=== PATIENT | female | born 2000 | race Caucasian/White ===

== ENCOUNTER 2019-10-31 18:21 | Emergency (ER) | payer OTHER ==
--- NOTE | 2019-10-31 18:57 | ED.PDOC ---
History of Present Illness - General Time Seen by Provider: 10/31/19 18:56 Source: patient - History of Present Illness Initial Comments: 19-year-old female with PMH of anemia who presents with chief complaint of left fourth digit pain following injury at approximately 530 this evening. [place] her left distal fourth digit got caught between the boat and the dock causing blunt smashing injury to the tip of the finger. She reports constant throbbing 6/10 severity pain to the fingertip without radiation, worse with palpation and range of motion of the fingertip, took ibuprofen 800 mg prior to arrival with little pain relief. Reports a little bit of numbness to the tip of the finger but no weakness. She does report some swelling and some bleeding of the nailbed and displacement of the base of the nailbed. Denies any other acute injuries. Occurred: this evening Home Medications: Ambulatory Orders Cephalexin Monohydrate [Keflex] 500 mg PO BID 7 Days #14 cap 10/31/19 Review of Systems - Review of Systems Review of Systems: 10/31/19 20:10 as per HPI All other Systems: Reviewed and Negative Family Medical History - Family History Mother Family History: Unknown Physical Exam - Physical Exam General Appearance: Alert, Comfortable, No apparent distress Eyes, Ears, Nose, Throat Exam: PERRL/EOMI, normal ENT inspection Neck: full range of motion, supple Cardiovascular/Respiratory: regular rate, rhythm, no M/R/G, normal peripheral pulses, normal breath sounds, no respiratory distress Abdominal Exam: non-tender Elbow/Forearm Exam: normal inspection Wrist Exam: normal inspection Hand Exam: nail injury - To the distal left fourth digit there is moderate swelling without apparent deformity. The fingernail is detached from the base but still in place and there is scant bleeding from the nailbed noted but the nailbed is unable to be directly visualized. There is moderate tenderness to palpation of the distal fourth digit. Active and passive range of motion of the DIP joint is moderately limited due to pain. Otherwise the remainder of the hand appears normal. Good cap refill throughout. Strength and sensation intact throughout. Neuro/Tendon: normal sensation, normal motor functions, normal tendon functions Mental Status: alert, oriented x 3 Skin Exam: normal color, warm/dry Progress - Progress Progress: 10/31/19 19:12 Distal left fourth digit injury -Consider phalanx fracture, tendon injury, nailbed laceration, other -We will obtain x-ray of the left hand, cold pack and Tylenol 3 for pain 10/31/19 21:31 -X-ray of the left hand revealed comminuted distal tuft fracture of the fourth digit distal phalanx. There was no extension of the fracture into the joint space. No other acute processes were noted per my read. -See separate procedure note for expiration of the fourth digit nailbed as well as replacement of the partially avulsed nail back into the nailbed base/germinal matrix and sewn into place. -A clean dressing and a splint was applied to the fourth digit. The patient will need to have the sutures removed in 2 to 3 weeks time and will need to wear the splint for 3 to 4 weeks or until she has minimal pain to the area. I advised her to follow-up closely with her PCP, especially if she is having any issues. Will prescribe prophylactic antibiotics with Keflex 500 mg p.o. twice daily for 7 days. -Discharged home in good condition, ED return warnings discussed. Wound care discussed at length. Logan Blakely MD Billing #[id number] Procedures - Laceration/Wound Repair Left Finger Wound Explored: clean Betadine Prep?: Yes Suture Size/Type: 6:0, prolene Number of Sutures: 2 Layer Closure?: No Splint Applied?: Yes - U-shaped splint to distal 4th digit immobilizing DIP joint in extension Progress: The patient was verbally consented prior to start of procedure. A timeout was performed verifying the correct patient procedure site. The base of the left fourth digit was cleansed thoroughly with Betadine. A digital nerve block of the left fourth digit was then performed by injecting 2 mL's of 1% lidocaine without epi along the medial and lateral base of the digit at the site of the digital nerves. Excellent analgesic effect was achieved. The partially avulsed fingernail of the fourth digit was then lifted and the nailbed was able to be well visualized. No nailbed lacerations were noted. Then the fingernail was replaced into the base of the nailbed in order to prevent early closure of the germinal matrix. The nail was sewn into place along the lateral margins using 2 sutures of 6-0 Prolene. A hole was then made in the top of the fingernail using an 18-gauge needle. The patient tolerated the procedure well and there were no complications. Estimated blood loss less than 1 mL. A clean dressing was then applied and the DIP joint of the fourth digit was immobilized in extension with a U-shaped padded splint. Departure - Departure Clinical Impression: Fracture of distal phalanx of finger of left hand Avulsed fingernail Qualifiers: Encounter type: initial encounter Qualified Code(s): S61.309A - Unspecified open wound of unspecified finger with damage to nail, initial encounter Time of Disposition: 22:10 Disposition: Discharge to Home or Self Care Condition: Good Instructions: Finger Fracture (DC), Nail Avulsion (DC) Activity: increase activity as tolerated Prescriptions: Cephalexin Monohydrate [Keflex] 500 mg PO BID 7 Days #14 cap Home Medications: Ambulatory Orders Cephalexin Monohydrate [Keflex] 500 mg PO BID 7 Days #14 cap 10/31/19 Additional Instructions: The sutures of the fingernail will need to come out in 2 to 3 weeks time (November 13-). Continue wearing the finger splint as directed until the finger is minimally painful to palpation or for 3-4 weeks total, which ever comes sooner. Remove the splint and gently wash of the area with warm soap and water 1-2 times daily and pat dry and reapply topical antibiotic ointment such as Neosporin and put the splint back in place after. Follow-up with your primary care physician in the next 1 to 2 weeks as recommended for repeat evaluation or sooner as needed. Take the antibiotics as directed to help prevent infection. Return to the ED if the finger develops worsening redness, swelling, warmth, or puslike drainage which may indicate infection.
[2019-10-31] MEDS ORDERED: ACETAMINOPHEN W/COD #3 TAB 1 EA TAB PO ONE (20:08)
--- NOTE | 2019-10-31 20:08 | RAD ---
EXAM DESCRIPTION: Hand,Left 3 Views CLINICAL HISTORY: 19 years ,Female blunt injury/pain to left hand COMPARISON: None. TECHNIQUE: LEFT hand, Three view FINDINGS: Comminuted fracture of the distal aspect of the fourth distal phalanx. No radiopaque foreign object noted. IMPRESSION: Comminuted fracture of the distal aspect of the fourth distal phalanx Electronically signed by: Christiana Banks MD 10/31/2019 8:07 PM CDT
[2019-10-31] MEDS ORDERED: LIDOCAINE 1% 10 ML VIAL INJ ONE (20:13)
[2019-10-31 22:35] VITALS: BP 120/77; TEMP 98.5; O2SAT 100
== END 2019-10-31 22:36 | disposition home or self-care (01) ==
LOC: ER 18:21
DX: S62.637B Displaced fracture of distal phalanx of left little finger, initial encounter for open fracture (principal); W23.0XXA Caught, crushed, jammed, or pinched between moving objects, initial encounter; Y92.9 Unspecified place or not applicable